=== PATIENT | female | born 1995 | race Two or more races ===

== ENCOUNTER 2020-09-16 16:31 | Emergency (ER) | payer BC, OTHER ==
[~2020-09-16] VITALS: Ht 157.5 cm; Wt 72.6 kg
[2020-09-16] MEDS ORDERED: ACETAMINOPHEN 325 MG TAB PO ONE (17:00)
[2020-09-16 18:14] LABS: Urine Bacteria FEW /hpf (None Seen); Urine Blood Negative /uL (Negative); Urine Mucus MODERATE (None Seen); Urine Specific Gravity 1.033 (1.001-1.035); Urine WBC 9 /hpf (0 - 5)
[2020-09-16 21:26] VITALS: BP 126/81
== END 2020-09-16 21:30 | disposition home or self-care (01) ==
LOC: ER 16:31
DX: U07.1 COVID-19 (principal); N39.0 Urinary tract infection, site not specified; Z88.1 Allergy status to other antibiotic agents
CPT/HCPCS: 36415; 71045; 81001; 87426